=== PATIENT | female | born 1955 | race African-American/Black ===

== ENCOUNTER 2016-08-21 12:53 | Outpatient (CLI) ==
--- NOTE | 2016-08-21 13:49 | US ---
EXAM: ULTRASOUND CAROTID DUPLEX, BILATERAL HISTORY: Dizziness FINDINGS: Harp-scale ultrasound, color Doppler and spectral analysis was performed. Velocities are in meters per second. By harp scale and color Doppler imaging, there were regions of heterogeneous plaque formation identi fied within the carotid bulbs and internal carotid arteries. These regions of plaque appeared to re main less than 50% vessel diameter. RIGHT: External carotid artery peak systolic velocity: 0.7 Common carotid artery peak systolic velocity/end diastolic velocity: 0.8/0.2 Internal carotid artery peak systolic velocity: 1.1 ICA/CCA peak systolic velocity ratio: 1.3 ICA end diastolic velocity: 0.4 LEFT: External carotid artery peak systolic velocity: 0.5 Common carotid artery peak systolic velocity/end diastolic velocity: 0.9/0.3 Internal carotid artery peak systolic velocity: 0.9 ICA/CCA peak systolic velocity ratio: 0.9 ICA end diastolic velocity: 0.3 The right and left vertebral arteries were antegrade. IMPRESSION: 1. By harp scale and color Doppler imaging, there were regions of heterogeneous plaque formation id entified within the carotid bulbs and internal carotid arteries. These regions of plaque appeared t o remain less than 50% vessel diameter. 2. Internal carotid artery peak systolic velocities and ICA/CCA peak systolic velocity ratios indic ate no hemodynamically significant stenosis bilaterally. 3. Both vertebral arteries were antegrade.
== END 2016-08-21 12:54 | disposition home or self-care (01) ==
LOC: CAR 12:53
PROVIDERS: ATTEND Emergency Medicine
DX: R42 Dizziness and giddiness (principal); R06.02 Shortness of breath

== ENCOUNTER 2017-02-03 10:45 | Outpatient (CLI) | END 2017-02-03 10:46 | disposition home or self-care (01) | LOC: CAR 10:45 | PROVIDERS: ATTEND Internal Medicine | DX: G45.9 Transient cerebral ischemic attack, unspecified (principal) | CPT/HCPCS: 93005; 93010 ==